=== PATIENT | female | born 1950 | race Two or more races ===

== ENCOUNTER 2022-06-15 10:58 | Outpatient (CLI) | payer OTHER | END 2022-06-15 11:06 | disposition home or self-care (01) | LOC: SONOGRAMA 10:58 | PROVIDERS: ATTEND Pathology Anatomic Pathology & Clinical Pathology | DX: E04.2 Nontoxic multinodular goiter (principal); E07.9 Disorder of thyroid, unspecified; D34 Benign neoplasm of thyroid gland; E04.9 Nontoxic goiter, unspecified ==

== ENCOUNTER 2023-03-19 10:11 | Outpatient (CLI) | payer OTHER ==
[2023-03-19] MEDS ORDERED: ELIQUIS2.5 MG PO (15:40)
[2023-03-19] MEDS ORDERED: CARDIZEM30 MG PO (15:40)
[2023-03-19] MEDS ORDERED: ATORVASTATIN CA10 MG PO (15:40)
[2023-03-19] MEDS ORDERED: ZOLOFT25 MG PO (15:41)
[2023-03-19] MEDS ORDERED: BUPROPION XL450 MG PO (15:41)
[2023-03-19] MEDS ORDERED: CLONAZEPAM0.125 MG PO (15:42)
== END 2023-03-19 10:30 | disposition home or self-care (01) ==
LOC: LAB 10:11
PROVIDERS: ATTEND Orthopaedic Surgery
DX: D68.9 Coagulation defect, unspecified (principal); E78.2 Mixed hyperlipidemia; N39.0 Urinary tract infection, site not specified; Z20.822 Contact with and (suspected) exposure to COVID-19; R07.9 Chest pain, unspecified

== ENCOUNTER 2023-03-23 06:34 | Day surgery (SDC) | payer OTHER ==
[~2023-03-23] VITALS: Ht 177.8 cm; Wt 100.7 kg
[~2023-03-23 06:34] MED LIST: ATORVASTATIN CA10 MG PO; BUPROPION XL450 MG PO; CARDIZEM30 MG PO; CLONAZEPAM0.125 MG PO; ELIQUIS2.5 MG PO; ZOLOFT25 MG PO
[2023-03-23] MEDS ORDERED: PERCOCET 5-3251 EACH PO (13:28)
[2023-03-23] MEDS ORDERED: NABUMETONE500 MG PO (13:28)
== END 2023-03-23 17:15 | disposition home or self-care (01) ==
LOC: CIR.AMB 06:34
PROVIDERS: ATTEND Orthopaedic Surgery
DX: S83.241A Other tear of medial meniscus, current injury, right knee, initial encounter (principal); S83.281A Other tear of lateral meniscus, current injury, right knee, initial encounter; M67.51 Plica syndrome, right knee; M22.41 Chondromalacia patellae, right knee; Z20.822 Contact with and (suspected) exposure to COVID-19; I10 Essential (primary) hypertension; M65.9 Synovitis and tenosynovitis, unspecified

== ENCOUNTER 2024-08-22 07:30 | Inpatient (IN) | payer OTHER ==
[~2024-08-22] VITALS: Ht 177.8 cm; Wt 104.3 kg
[~2024-08-22 07:30] MED LIST changes: +LORAZEPAM1 MG; +NABUMETONE500 MG PO; +PERCOCET 5-3251 EACH PO; +RESTORIL15 M1 PO; +SYNTHROID125 MCG PO
[2024-08-22 08:13] VITALS: BP 109/51
[2024-08-22 08:49] LABS: HEMATOCRIT 38.8 % (36.0-45.00); HEMOGLOBIN 13.3 g/dL (12.0-15.00); MEAN CELL VOLUME 87.6 fL (80.00-100.00); MEAN CORPUSCULAR HEMOGLOBIN 29.9 pg (27.00-32.0); MEAN CORPUSCULAR HGB CONC 34.2 g/dl (32.0-36.0); PLATELET COUNT 223 K/uL (150-450); RED BLOOD COUNT 4.44 M/uL (4.00-6.00); RED CELL DISTRIBUTION WIDTH 14.3 % (11.5-14.5)
[2024-08-22 09:07] LABS: INR 1.09; PARTIAL THROMBOPLASTIN TIME 28.9 SECONDS (22.0-34.0); PROTHROMBIN TIME 11.8 SECONDS (9.0-11.5)
[2024-08-22 09:32] LABS: ALBUMIN 4.1 gm/dL (3.4-5.0); BILIRUBIN TOTAL 0.55 mg/dL (0.3-1.2); CALCIUM 9.6 mg/dL (8.5-10.1); CREATININE SERUM 1.01 mg/dL (0.55-1.02); GFR 53.73; GLOBULINA 3.3 G/DL (2.4-3.5); POTASSIUM 3.79 mEq/L (3.5-5.1); TOTAL PROTEIN 7.4 gm/dL (6.4-8.2)
[2024-08-22 09:49] LABS: PH,URINE 5.5 (5.0-8.0); URINE APPEARANCE Cloudy; URINE BILIRRUBIN Negative (NEGATIVE); URINE BLOOD Negative; URINE COLOR Yellow; URINE GLUCOSE Negative (NEGATIVE); URINE KETONE Trace (NEGATIVE); URINE LEUKOCYTE Large; URINE NITRATE Negative; URINE PROTEIN Trace (NEGATIVE); URINE UROBILINOGEN 0.2 E.U./dl
[2024-08-22 09:51] LABS: URINE BACTERIA 219.2 uL (0.0-1933); URINE CAST 1.67 uL (0.0-1.40); URINE EPITHELIAL CELLS 22.1 uL (0.0-38.8); URINE RBC 8.7 uL (0.0-20.8); URINE WBC 494.4 uL (0.0-23.2)
[2024-08-22 10:50] LABS: URINE CRYSTALS MODERATE /HPF; URINE EPITHELIAL CELLS 0-4 /HPF
[2024-08-29] MEDS ORDERED: ONDANSETRON HCL 2 MG/ML VIAL IV PRN (10:30)
[2024-08-29] MEDS ORDERED: OxyCODONE HCL/APAP UD (PERCOCET) PO PRN (10:30)
[2024-08-29] MEDS ORDERED: VANCOMYCIN HCL 1,000 MG VIAL IR SCH (12:00)
[2024-08-29] MEDS ORDERED: KETOROLAC TROMETHAMINE 60 MG VIAL IM SCH (12:00)
[2024-08-29] MEDS ORDERED: TRANEXAMIC ACID 100MG/1ML (1000MG) AMPUL IV SCH ×2 (12:00)
[2024-08-29] MEDS ORDERED: BUPIVACAINE HCL 30 ML VIAL IJ SCH (12:00)
[2024-08-29] MEDS ORDERED: CEFAZOLIN SODIUM 1,000 MG VIAL IV SCH ×2 (12:00)
[2024-08-29] MEDS ORDERED: LIDOCAINE HCL 1% 10ML VIAL IJ SCH (12:00)
[2024-08-29] MEDS ORDERED: MORPHINE SULFATE 4 MG/ML CARTRIDGE IV SCH ×2 (12:00)
[2024-08-29] MEDS ORDERED: ISOPROPYL ALCOHOL 30 ML OUNCE TOP SCH (12:00)
[2024-08-29] MEDS ORDERED: MEPERIDINE HCL 25 MG/ML AMPUL IV ONE (16:00)
[2024-08-29 17:23] VITALS: BP 119/57
[2024-08-29 20:00] VITALS: BP 136/83
[2024-08-29] MEDS ORDERED: GABAPENTIN 100 MG CAPSULE PO SCH (21:00)
[2024-08-29] MEDS ORDERED: ORPHENADRINE CITRATE 100 MG TABLET PO SCH (21:00)
[2024-08-29] MEDS ORDERED: TEMAZEPAM 15 MG CAPSULE PO SCH (21:00)
[2024-08-30] VITALS: BP 126/78
[2024-08-30 01:17] LABS: HEMATOCRIT 35.2 % (36.0-45.00); HEMOGLOBIN 12.1 g/dL (12.0-15.00); MEAN CELL VOLUME 88.1 fL (80.00-100.00); MEAN CORPUSCULAR HEMOGLOBIN 30.3 pg (27.00-32.0); MEAN CORPUSCULAR HGB CONC 34.4 g/dl (32.0-36.0); PLATELET COUNT 193 K/uL (150-450); RED BLOOD COUNT 3.99 M/uL (4.00-6.00); RED CELL DISTRIBUTION WIDTH 14.3 % (11.5-14.5)
[2024-08-30] MEDS ORDERED: LEVOTHYROXINE SODIUM 125 MCG TABLET PO SCH (06:00)
[2024-08-30 08:00] VITALS: BP 120/74
[2024-08-30] MEDS ORDERED: DILTIAZEM HCL 30 MG TABLET PO SCH (09:00)
[2024-08-30] MEDS ORDERED: IRON FUM,PS/FOLIC ACID/VITC/B3 1 CAP CAPSULE PO NR (14:45)
[2024-08-30] MEDS ORDERED: Cyanocobalamin/Mecobalamin 1 TAB.SL SL NR (14:45)
[2024-08-30 16:00] VITALS: BP 140/79
[2024-08-30] MEDS ORDERED: VITAMIN B COMPLEX 1 EACH PO SCH (17:00)
[2024-08-30] MEDS ORDERED: APIXABAN 5 MG TABLET PO SCH (21:00)
[2024-08-31] VITALS: BP 145/85
[2024-08-31 01:04] LABS: HEMATOCRIT 34.5 % (36.0-45.00); HEMOGLOBIN 11.9 g/dL (12.0-15.00); MEAN CELL VOLUME 87.9 fL (80.00-100.00); MEAN CORPUSCULAR HEMOGLOBIN 30.3 pg (27.00-32.0); MEAN CORPUSCULAR HGB CONC 34.5 g/dl (32.0-36.0); PLATELET COUNT 176 K/uL (150-450); RED BLOOD COUNT 3.93 M/uL (4.00-6.00); RED CELL DISTRIBUTION WIDTH 14.1 % (11.5-14.5)
[2024-08-31 08:00] VITALS: BP 122/74
[2024-08-31] MEDS ORDERED: IRON FUM,PS/FOLIC ACID/VITC/B3 1 CAP CAPSULE PO SCH (09:00)
[2024-08-31] MEDS ORDERED: Cyanocobalamin/Mecobalamin 1 TAB.SL SL SCH (09:00)
[2024-08-31] MEDS ORDERED: NORFLEX100MG PO (10:47)
[2024-08-31] MEDS ORDERED: ELIQUIS5 MG PO (10:48)
[2024-08-31] MEDS ORDERED: OXYC1TAB9 PO (10:49)
[2024-08-31] MEDS ORDERED: GABAPENTIN100 MG PO (10:49)
== END 2024-08-31 15:10 | DRG 470 ==
LOC: O/R 08-29 06:45 → OB/GYN 08-29 06:45 → SURH 08-29 07:30 → OB/GYN 08-29 16:23
PROVIDERS: ADMIT Orthopaedic Surgery; ATTEND Orthopaedic Surgery
PROC: 0SRD0JZ Replacement of Left Knee Joint with Synthetic Substitute, Open Approach (ICD-10-PCS; principal; 2024-08-29 10:00)
DX: M17.12 Unilateral primary osteoarthritis, left knee (principal); M85.662 Other cyst of bone, left lower leg